=== PATIENT | female | born 1980 | race Caucasian/White ===

== ENCOUNTER 2018-12-13 10:53 | Emergency (ER) | payer BC, MEDICAID ==
[~2018-12-13] VITALS: Ht 149.9 cm; Wt 86.4 kg
[~2018-12-13 10:53] MED LIST: AMOX1TAB10 PO; IBUP-1542 PO; PRED20TA PO
[2018-12-13 11:13] VITALS: BP 147/87; PULSE 86; RESP 18; Ht 149.9 cm; Wt 86.4 kg
== END 2018-12-13 12:25 | disposition home or self-care (01) ==
LOC: E/R 10:53
DX: J03.90 Acute tonsillitis, unspecified (principal)
CPT/HCPCS: 99283